=== PATIENT | female | born 1970 | race Caucasian/White ===

== ENCOUNTER 2017-04-01 22:52 | Emergency (ER) | payer BC ==
[2017-04-01 23:00] VITALS: BP 137/101
== END 2017-04-02 01:37 | disposition home or self-care (01) ==
LOC: ED 22:52
DX: S60.211A Contusion of right wrist, initial encounter (principal); X58.XXXA Exposure to other specified factors, initial encounter; Y93.89 Activity, other specified; Y99.8 Other external cause status; Y92.89 Other specified places as the place of occurrence of the external cause